=== PATIENT | male | born 1955 | race African-American/Black ===

== ENCOUNTER 2020-12-27 22:07 | Emergency (ER) | payer MEDICARE ==
[~2020-12-27] VITALS: Ht 172.7 cm; Wt 87.3 kg
[2020-12-27 22:20] VITALS: BP 194/88
--- NOTE | 2020-12-27 22:44 | PHYS DOC ---
Past Medical History Past Medical History: Diabetes-Type II, High Cholesterol, Hypertension Past Surgical History: Other Additional Past Surgical Histo: hernia repair Smoking Status: Never Smoker Alcohol Use: None General Adult EDM: Chief Complaint: ABDOMINAL PAIN HPI: HPI: Patient is a 65 year [id number] male presents with a chief complaint of left flank pain. Patient states onset of symptoms 1800 hrs. located in the left flank with radiation anterior. Patient has associated nausea and has vomited. Patient denies any urinary issues. Review of Systems: Review of Systems: Review of systems: Constitutional symptoms- No fever, no chills. Eyes- No Discharge, No Visual Loss Respiratory symptoms- No shortness of breath, No wheezing, No Dyspnea on Exertion Cardiovascular Systems; No chest pain, No Palpitations, No syncope Gastrointestinal symptoms: NO abdominal pain, positive nausea positive vomiting Genitourinary symptoms: No dysuria. Positive flank pain Musculoskeletal symptoms: No back pain No extremity pain. NEUROLOGICAL Symptoms: No headache, no generalized weakness; No focal Weakness Heart Score: C/O Chest Pain: N/A Risk Factors: Risk Factors: DM, Current or recent (<one month) smoker, HTN, HLP, family history of CAD, obesity. Risk Scores: Score 0 - 3: 2.5% MACE over next 6 weeks - Discharge Home Score 4 - 6: 20.3% MACE over next 6 weeks - Admit for Clinical Observation Score 7 - 10: 72.7% MACE over next 6 weeks - Early Invasive Strategies Allergies: Allergies: Allergies Coded Allergies Type Severity Reaction Last Updated Verified No Known Drug Allergies 12/27/20 No Physical Exam: PE: General: alert, patient appears uncomfortable unable to sit still Skin: warm, dry and intact. Head:: Normocephalic, atraumatic. Neck: Trachea midline. Eyes: EOMI, Normal conjunctiva, No drainage CARDIOVASCULAR: Regular rate and rhythm RESPIRATORY: No respiratory distress Back: Full range of motion. MUSCULOSKELETAL: Full range of motion of bilateral upper and lower extremities. GASTROINTESTINAL: Abdomen soft without rebound or guarding. NEUROLOGICAL: Alert and noted to person, place and time. No neurological deficits observed Psychiatric: Cooperative. Normal judgment Current Patient Data: Vital Signs: Vital Signs Date Time Temp Pulse Resp B/P (MAP) Pulse Ox O2 Delivery O2 Flow Rate FiO2 12/27/20 22:20 98.2 61 18 194/88 (123) 100 Room Air 98.2 EKG: EKG: [] Radiology/Procedures: Radiology/Procedures: [] Impression: Findings: Lower chest: No consolidation or pleural effusion. Abdomen and pelvis: The liver, spleen, adrenal glands, pancreas and gallbladder are unremarkable. No biliary ductal dilatation. Mild left hydronephrosis. Left perinephric and periureteral fat stranding. 2 tiny 2 mm calculi within the left ureterovesical junction (series 2 image 181). No right hydronephrosis. Punctate nonobstructing left intrarenal calculus. Large left renal cyst measures 6.2 x 6.4 cm. Additional left renal cyst. Right superior renal cyst measures 1.6 x 1.6 cm. Decompressed urinary bladder. Normal appendix. No evidence of bowel obstruction. No pathologic lymphadenopathy. No ascites. Mild atheromatous plaque throughout the nonaneurysmal abdominal aorta and branch vessels. Bones: No pathologic osseous lesions. Impression: 1. Two tiny calculi within the left ureterovesical junction contributing to mild left hydronephrosis and perinephric/perineural fat stranding. 2. Additional tiny left intrarenal nonobstructing calculus. Course & Med Decision Making: Course & Med Decision Making Pertinent Labs and Imaging studies reviewed. (See chart for details) [] Treated with Toradol and Flomax. Patient's pain resolved post Toradol. Patient referred to urology provided a strainer. Maggy Disclaimer: Maggy Disclaimer: This electronic medical record was generated, in whole or in part, using a voice recognition dictation system. Departure Departure Impression: Primary Impression: Kidney stone Disposition: 01 HOME SELF CARE/HOMELESS Condition: STABLE Patient Instructions: Kidney Stones Scripts Tamsulosin Hcl (FLOMAX) 0.4 Mg Cap.er.24h 0.4 MG PO DAILY, #14 TAB Prov: ANGEL SUTTON DO 12/27/20 ANGEL SUTTON DO Dec 27, 2020 22:44
[2020-12-27] MEDS ORDERED: ONDANSETRON PF 4 MG/2 ML VIAL. IVP ONE (22:45)
[2020-12-27] MEDS ORDERED: KETOROLAC 30 MG/ML VIAL. IVP ONE (22:45)
[2020-12-27] MEDS ORDERED: IV NORMAL SALINE 1000ML BAG 1,000 ML IV ONE (22:45)
--- NOTE | 2020-12-27 23:17 | RAD ---
CT ABDOMEN+PELVIS WO History: Reason: LEFT flank pain / SIDE PAIN. HX OF HERNIA SX ONLY. / Spl. Instructions: / History: Technique: Noncontrast examination of the abdomen and pelvis. Coronal and sagittal reconstructions we re performed. Exposure: One or more of the following individualized dose reduction techniques were utilized for thi s examination: 1. Automated exposure control 2. Adjustment of the mA and/or kV according to patient size 3. Use of iterative reconstruction technique. Comparison: None Findings: Lower chest: No consolidation or pleural effusion. Abdomen and pelvis: The liver, spleen, adrenal glands, pancreas and gallbladder are unremarkable. No biliary ductal dilatation. Mild left hydronephrosis. Left perinephric and periureteral fat stranding. 2 tiny 2 mm calculi within the left ureterovesical junction (series 2 image 181). No right hydronephrosis. Punctate nonobstruct ing left intrarenal calculus. Large left renal cyst measures 6.2 x 6.4 cm. Additional left renal cyst . Right superior renal cyst measures 1.6 x 1.6 cm. Decompressed urinary bladder. Normal appendix. No evidence of bowel obstruction. No pathologic lymphadenopathy. No ascites. Mild at heromatous plaque throughout the nonaneurysmal abdominal aorta and branch vessels. Bones: No pathologic osseous lesions. Impression: 1. Two tiny calculi within the left ureterovesical junction contributing to mild left hydronephrosis and perinephric/perineural fat stranding. 2. Additional tiny left intrarenal nonobstructing calculus. Electronically signed by: Eliu Gordon DO (12/27/2020 11:15 PM) [facility]
[2020-12-27 23:26] LABS: BASO % 0 % (0-3); EOS % 0 % (0-3); HEMATOCRIT 38.6 % (39.0-53.0); HEMOGLOBIN 12.7 g/dL (13.0-17.5); LYMPH # 1.1 x10^3/uL (1.0-4.8); LYMPH % 10 % (24-48); MEAN CORPUSCULAR HEMOGLOBIN 28 pg (25-35); MEAN CORPUSCULAR HGB CONC 33 g/dL (31-37); MEAN CORPUSCULAR VOLUME 86 fL (79-100); MONO # 0.7 x10^3/uL (0.0-1.1); MONO % 6 % (0-9); NEUT # 9.3 x10^3/uL (1.8-7.7); NEUT % 84 % (31-73); PLATELET COUNT 218 x10^3/uL (140-400); RED BLOOD COUNT 4.48 x10^6/uL (4.30-5.70); WHITE BLOOD COUNT 11.2 x10^3/uL (4.0-11.0)
[2020-12-27] MEDS ORDERED: TAMSULOSIN 0.4 MG CAP.ER.24H. PO ONE (23:30)
[2020-12-27 23:36] LABS: CALCIUM 9.1 mg/dL (8.5-10.1); CREATININE 1.7 mg/dL (0.7-1.3); GFR 40.7; POTASSIUM 3.3 mmol/L (3.5-5.1)
[2020-12-27 23:43] LABS: ALBUMIN 3.7 g/dL (3.4-5.0); TOTAL BILIRUBIN 0.6 mg/dL (0.2-1.0); TOTAL PROTEIN 7.4 g/dL (6.4-8.2)
[2020-12-27] MEDS ORDERED: TAMS0.4C97 PO (23:43)
== END 2020-12-28 00:05 | disposition home or self-care (01) ==
LOC: ER 22:07
DX: N13.2 Hydronephrosis with renal and ureteral calculous obstruction (principal); R11.2 Nausea with vomiting, unspecified; R10.9 Unspecified abdominal pain; E11.9 Type 2 diabetes mellitus without complications; E78.00 Pure hypercholesterolemia, unspecified; I10 Essential (primary) hypertension; Z98.890 Other specified postprocedural states
CPT/HCPCS: 36415; 74176; 80053; 85025; 96361; 96374; 96375; 99284; J1885; J2405; J7030

== ENCOUNTER 2021-04-24 11:48 | Emergency (ER) | payer MEDICARE ==
[~2021-04-24] VITALS: Ht 172.7 cm; Wt 84.0 kg
[~2021-04-24 11:48] MED LIST: TAMS0.4C97 PO
[2021-04-24 12:00] VITALS: BP 142/73
[2021-04-24] MEDS ORDERED: CIPR500T94 PO (12:33)
[2021-04-24] MEDS ORDERED: CEPH500C PO (12:33)
--- NOTE | 2021-04-24 12:37 | PHYS DOC ---
Past Medical History Past Medical History: Diabetes-Type II, High Cholesterol, Hypertension Past Surgical History: Other Additional Past Surgical Histo: hernia repair Smoking Status: Never Smoker Alcohol Use: None General Adult EDM: Chief Complaint: PUNCTURE WOUND HPI: HPI: Patient is a 65 year old Male who presents with 2 days ago he was at work and he stepped on a nail which went through his shoe. He states he took his shoe off and got the nail out right away. He states he put peroxide over it. He states he has been keeping it bandaged he has been up and working and walking on it. He rates his pain a 2 out of 10 and states it just aches. He denies any redness or fevers or increased pain or numbness and tingling. He does have a history of diabetes, high cholesterol, hypertension and hernia repair. Review of Systems: Review of Systems: Constitutional: Denies fever or chills. [] Eyes: Denies change in visual acuity. [] HENT: Denies nasal congestion or sore throat. [] Respiratory: Denies cough or shortness of breath. [] Cardiovascular: Denies chest pain or edema. [] GI: Denies abdominal pain, nausea, vomiting, bloody stools or diarrhea. [] : Denies dysuria. [] Musculoskeletal: Denies back pain or joint pain.+ Right foot pain [] Integument: Denies rash. + foot puncture wound[] Neurologic: Denies headache, focal weakness or sensory changes. [] Endocrine: Denies polyuria or polydipsia. [] Lymphatic: Denies swollen glands. [] Psychiatric: Denies depression or anxiety. [] Heart Score: C/O Chest Pain: No Risk Factors: Risk Factors: DM, Current or recent (<one month) smoker, HTN, HLP, family history of CAD, obesity. Risk Scores: Score 0 - 3: 2.5% MACE over next 6 weeks - Discharge Home Score 4 - 6: 20.3% MACE over next 6 weeks - Admit for Clinical Observation Score 7 - 10: 72.7% MACE over next 6 weeks - Early Invasive Strategies Current Medications: Current Medications Medications (Trade) Dose Ordered Sig/Toney Start Time Stop Time Status Last Admin Dose Admin Diphtheria/ Tetanus/Acell Pertussis (ADACEL TDap SYRINGE) 0.5 ml ONCE ONCE 04/24/21 12:45 04/24/21 12:46 Allergies: Allergies: Allergies Coded Allergies Type Severity Reaction Last Updated Verified No Known Drug Allergies 12/27/20 No Physical Exam: PE: Constitutional: Well developed, well nourished, no acute distress, non-toxic appearance. [] HENT: Normocephalic, atraumatic, bilateral external ears normal, oropharynx moist, no oral exudates, nose normal. [] Eyes: PERRLA, EOMI, conjunctiva normal, no discharge. [] Neck: Normal range of motion, no tenderness, supple, no stridor. [] Cardiovascular:Heart rate regular rhythm, no murmur [] Lungs & Thorax: Bilateral breath sounds clear to auscultation [] Abdomen: Bowel sounds normal, soft, no tenderness, no masses, no pulsatile masses. [] Skin: Warm, dry, no erythema, no rash. Right Foot puncture wound. [] Back: No tenderness, no CVA tenderness. [] Extremities: No tenderness, no cyanosis, no clubbing, ROM intact, no edema. [] Neurologic: Alert and oriented X 3, normal motor function, normal sensory function, no focal deficits noted. [] Psychologic: Affect normal, judgement normal, mood normal. [] Current Patient Data: Vital Signs: Vital Signs Date Time Temp Pulse Resp B/P (MAP) Pulse Ox O2 Delivery O2 Flow Rate FiO2 04/24/21 12:00 63 12 142/73 (86) 99 Room Air EKG: EKG: [] Radiology/Procedures: Radiology/Procedures: [] Impression: [facility] [address] [place] [address] IMAGING REPORT Signed PATIENT: GATITO DICKINSON ACCOUNT: [id number] : 1955 LOCATION: ER AGE: 65 SEX: M EXAM STATUS: PRE ER ORD. PHYSICIAN: YEFRI PATTON APRN REASON: STEPPED ON NAIL PROCEDURE: FOOT RIGHT 3V XR FOOT_RIGHT 3 VIEWS 04/24/2021 12:45 PM INDICATION: Stepped on nail COMPARISON: None available. TECHNIQUE: 3 views of the right foot are provided. FINDINGS/ IMPRESSION: There is no acute fracture or dislocation. Joint spaces are maintained. Bone mineralization is within normal limits. Regional soft tissues are within normal limits. There is no soft tissue gas or osseous erosion. No radiopaque foreign body. Plantar calcaneal enthesophyte. Electronically signed by: Judah Dockery MD (04/24/2021 1:21 PM) [id number] DICTATED and SIGNED BY: JUDAH DOCKERY MD DATE: 04/24/21 [id number] Course & Med Decision Making: Course & Med Decision Making Pertinent Labs and Imaging studies reviewed. (See chart for details) See HPI. Alert and oriented x4. Ambulatory steady gait. Skin pink warm and dry. There is no drainage from the puncture or redness or signs of infection. No tenderness. Cap refill less than 2 seconds. No swelling. Pedal pulse strong are present. Speaks in full clear sentences. [] Dragon Disclaimer: Dragon Disclaimer: This electronic medical record was generated, in whole or in part, using a voice recognition dictation system. Departure Departure Impression: Primary Impression: Puncture wound Disposition: HOME / SELF CARE / HOMELESS Condition: STABLE Referrals: [facility] (PCP) Patient Instructions: Puncture Wound Additional Instructions: Keep clean and covered. Watch for signs of infection. Take the antibiotics as prescribed and with food. Follow-up with your primary care provider. Scripts Ciprofloxacin Hcl (CIPRO) 500 Mg Tablet 1 TAB PO BID for 10 Days, #20 TAB 0 Refills Prov: YEFRI PATTON APRN 04/24/21 Cephalexin (CEPHALEXIN) 500 Mg Capsule 1 CAP PO TID, #30 CAP Prov: YEFRI PATTON DIRECT SALES CONSULTANT 04/24/21 YEFRI PATTON DIRECT SALES CONSULTANT Apr 24, 2021 12:37
[2021-04-24] MEDS ORDERED: DIPH,PERTUSS(ACELL),TET VAC/PF 0.5 ML SYRINGE. VAX IM ONE (12:45)
--- NOTE | 2021-04-24 13:24 | RAD ---
XR FOOT_RIGHT 3 VIEWS 04/24/2021 12:45 PM INDICATION: Stepped on nail COMPARISON: None available. TECHNIQUE: 3 views of the right foot are provided. FINDINGS/ IMPRESSION: There is no acute fracture or dislocation. Joint spaces are maintained. Bone mineralization is within normal limits. Regional soft tissues are within normal limits. There is no soft tissue gas or osseou s erosion. No radiopaque foreign body. Plantar calcaneal enthesophyte. Electronically signed by: Lucila Ochoa MD (04/24/2021 1:21 PM) [id number]
== END 2021-04-24 13:45 | disposition home or self-care (01) ==
LOC: ER 11:48
DX: S91.331A Puncture wound without foreign body, right foot, initial encounter (principal); E11.9 Type 2 diabetes mellitus without complications; E78.00 Pure hypercholesterolemia, unspecified; I10 Essential (primary) hypertension; W22.8XXA Striking against or struck by other objects, initial encounter; Y93.89 Activity, other specified; Y92.89 Other specified places as the place of occurrence of the external cause; Y99.8 Other external cause status
CPT/HCPCS: 73630; 90471; 90715; 99283-25